=== PATIENT | female | born 1995 | race Caucasian/White ===

== ENCOUNTER → 2022-08-26 11:17 | Outpatient (BNVA) | payer OTHER, SELFPAY | PROVIDERS: Visit Provider Family Medicine | DX: Z86.711 Personal history of pulmonary embolism (principal); G43.909 Migraine, unspecified, not intractable, without status migrainosus; R06.02 Shortness of breath | CPT/HCPCS: 80053; 84439; 84443; 85025; 85049; 85384; 85610; 85730 ==

== ENCOUNTER → 2022-11-18 09:05 | Outpatient (BNVA) | payer OTHER, SELFPAY | PROVIDERS: PCP Family Medicine; Visit Provider Family Medicine | DX: G43.909 Migraine, unspecified, not intractable, without status migrainosus (principal) | CPT/HCPCS: 82728; 82785; 83550; 85025; 86003 ==

== ENCOUNTER → 2023-10-20 11:03 | Outpatient (BNVA) | payer OTHER, SELFPAY | PROVIDERS: PCP Family Medicine; Visit Provider Family Medicine | DX: R63.4 Abnormal weight loss (principal) | CPT/HCPCS: 80053; 84439; 84443; 85025 ==

== ENCOUNTER → 2023-10-21 09:26 | Outpatient (BNVA) | payer OTHER, SELFPAY | PROVIDERS: PCP Family Medicine; Visit Provider Nurse Practitioner Women's Health | DX: Z12.4 Encounter for screening for malignant neoplasm of cervix (principal); R10.2 Pelvic and perineal pain | CPT/HCPCS: 87491; 87591; 87624 ==

== ENCOUNTER → 2024-12-23 12:06 | Outpatient (BNVA) | payer OTHER, SELFPAY | PROVIDERS: PCP Family Medicine; Visit Provider Family Medicine | DX: R00.9 Unspecified abnormalities of heart beat (principal); Z86.39 Personal history of other endocrine, nutritional and metabolic disease | CPT/HCPCS: 80053; 80061; 84439; 84443; 85025; 86376 ==

== ENCOUNTER → 2025-02-02 14:43 | Outpatient (BNVA) | payer OTHER, SELFPAY | PROVIDERS: PCP Family Medicine; Referring Provider Family Medicine; Visit Provider Internal Medicine | DX: R00.2 Palpitations (principal); R00.9 Unspecified abnormalities of heart beat; Z86.711 Personal history of pulmonary embolism | CPT/HCPCS: 93005 ==

== ENCOUNTER 2025-02-25 10:00 | Outpatient (CLI) | payer OTHER, SELFPAY ==
--- NOTE | 2025-02-25 10:15 | USCV_ITS ---
Maria Dolores Ruvalcaba Age: 29 Gender: F : 1995 Exam Date: 02/25/2025 10:36 Ordering Phys: Tigre Larkin M.D ([email or web address]) Technologist: Ulices Mohr [place] [facility] [place]: chest pain BP: 126 / 74 HR: 62 Rhythm: Sinus Technical Quality: Adequate MEASUREMENTS (Male / Female) Normal Values 2D ECHO LV Diastolic Diameter PLAX 4.7 cm 4.2 - 5.9 / 3.9 - 5.3 cm IVS Diastolic Thickness 0.5 cm 0.6 - 1.0 / 0.6 - 0.9 cm IVS Systolic Thickness 0.8 cm LVPW Diastolic Thickness 0.7 cm 0.6 - 1.0 / 0.6 - 0.9 cm LVPW Systolic Thickness 1.4 cm LVOT Diameter 2.0 cm LV Ejection Fraction 2D Teich 62.5 % LV Ejection Fraction MOD 4C 70.7 % LV Ejection Fraction MOD 2C 73.3 % LV Ejection Fraction 2C AL 73.4 % LA Diameter 3.1 cm RA Systolic Volume 4C AL 18.0 ml RA Systolic Volume 4C MOD 17.2 ml LA Sys Volume AL 36.8 cm cubed LA Sys Volume Index AL 21.0 cm cubed/m squared Aorta at Sinotubular Diameter 2.1 cm IVC Diameter 1.4 cm M-MODE LA Ao Ratio MM 1.3 AV Cusp Separation MM 1.7 cm DOPPLER AV Peak Velocity 123.0 cm/s LVOT Peak Velocity 102.0 cm/s AV Area Cont Eq vti 3.0 cm squared AV Area Cont Eq pk 2.7 cm squared MV Area PHT 5.3 cm squared Mitral E to A Ratio 1.3 TV Peak Velocity 177.3 cm/s TR Peak Velocity 211.0 cm/s TR Peak Gradient 17.8 mmHg TR Mean Velocity 168.0 cm/s TR Mean Gradient 11.7 mmHg TR Velocity Time Integral 58.7 cm PV Peak Velocity 106.7 cm/s RV Ejection Time 0.3 s FINDINGS Left Ventricle Normal left ventricular size, systolic function and wall thickness, with no regional wall motion abnormalities. Left ventricular ejection fraction is estimated at 60 %. Grade II/IV diastolic dysfunction, moderately elevated filling pressures. Right Ventricle Normal right ventricular size and systolic function. Right Atrium Normal right atrial size. Left Atrium Normal left atrial size. IA Septum Normal appearance of the interatrial septum. Mitral Valve Normal mitral valve structure. No mitral valve stenosis or regurgitation. Aortic Valve Aortic valve sclerosis. No aortic valve stenosis. Tricuspid Valve [id number] tricuspid valve regurgitation. tricuspid valve regurgitation. Pulmonic Valve Mild pulmonary valve regurgitation. Pericardium No pericardial effusion. Aorta Normal diameter of the aortic root and ascending thoracic aorta. IVC Normal IVC diameter. CONCLUSIONS Normal left ventricular size, systolic function and wall thickness, with no regional wall motion abnormalities. Left ventricular ejection fraction is estimated at 60 %. Grade II/IV diastolic dysfunction, moderately elevated filling pressures. [id number] tricuspid valve regurgitation. tricuspid valve regurgitation. There is no pericardial effusion. Right atrial pressure is around 5 mm of mercury. Qamar Morris MD (Electronically Signed) Final Date: 02 March 2025 10:06 S
== END 2025-02-25 10:01 | disposition home or self-care (01) ==
LOC: RAD 10:01
PROVIDERS: PCP Family Medicine; Visit Provider Internal Medicine
DX: R07.9 Chest pain, unspecified (principal); R06.02 Shortness of breath; I51.89 Other ill-defined heart diseases; I35.8 Other nonrheumatic aortic valve disorders; I36.1 Nonrheumatic tricuspid (valve) insufficiency; I37.1 Nonrheumatic pulmonary valve insufficiency
CPT/HCPCS: 93306

== ENCOUNTER 2025-03-21 08:02 | Outpatient (CLI) | payer OTHER, SELFPAY ==
--- NOTE | 2025-03-21 | ECG_ITS ---
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 Interpretive Statements EXERCISE STRESS TEST EXERCISE DATA: The patient was exercised by Aakash protocol. Baseline heart rate was 74 beats per minute. Baseline blood pressure was 120/81 millimeters of mercury. Maximal predicted heart rate was 190 beats per minute. Maximum heart rate achieved was 186 which was 97% of the maximum predicted heart rate. Maximum blood pressure was 155/46 millimeters of mercury. Total exercise time was 8 minutes and 40 seconds. Maximum METs achieved was 10.2. The reason for ending the test was completion of protocol. The patient complained of shortness of breath and chest pain during the stress test, which then resolved at the end of the test. ELECTROCARDIOGRAM: BASELINE: Showed sinus rhythm, normal axis, no significant ST-T changes at the baseline noted. [] EXERCISE: At the peak exercise level, [] No significant ST-T changes suggestive of ischemia noted. [] RECOVERY: During the recovery period, heart rate dropped appropriately. No significant ST-T changes in the recovery suggestive of ischemia noted. [] CONCLUSION: 1. Exercise capacity is good. 2. Heart rate response was appropriate 3. Blood pressure response was appropriate 4. Symptoms not suggestive of ischemia. 5. Electrocardiogram portion of the stress test was not suggestive of ischemia. 6. Nuclear scan will be documented separately. Electronically Signed On 04-10-2025 15:41:38 [employer] by Tigre Larkin M.D. [email or web address]
[2025-03-21 08:28] VITALS: BMI 22.8
--- NOTE | 2025-03-21 08:29 | NMCV_ITS ---
NM yoselin perf SPECT r/s* [id number] RuvalcabaMaria Dolores Age: 29 Gender: F : 1995 Exam Date: 03/21/2025 09:14 Ordering Phys: Tigre Larkin M.D ([email or web address]) Technologist: TRANG Alamo Exam Location: [facility] Indications: cp STRESS TEST Please see separate stress test report in [facility] for full findings IMAGE PROTOCOL Rest/Stress 1 Exercise Day Radiopharmaceutical Dose (mCi) Administration Site Administered by Rest: Tc-99m 10.4 IV TRANG Alamo Sestamibi Stress:Tc-99m 32.9 IV Vianney Perez LOGISTICS SERVICE REPRESENTATIVE Sestamibi Rest: 21-Mar-2025 60 Discovery 630 Stress: 21-Mar-2025 30 Discovery 630 Radiopharmaceutical was injected at 96 % maximum heart rate. Images obtained in supine and prone position. SPECT RESULTS Technical Quality: Good Raw Data Analysis: Normal Image Corrections: No attenuation or motion correction applied Summed Stress Score: 0 Summed Rest Score: 0 Summed Difference Score: 0 PERFUSION FINDINGS SPECT images demonstrate homogeneous tracer distribution throughout the myocardium. FUNCTIONAL RESULTS (calculated via Gated SPECT) Stress Image LV EF (%): 79 Stress EDV (mL):73 TID: 0.65 Stress ESV (mL):15 FUNCTIONAL FINDINGS: There is normal left ventricular systolic function. IMPRESSIONS 1. Normal myocardial perfusion imaging with no evidence of ischemia 2. LV systolic function is normal Tigre Larkin MD (Electronically Signed) Final Date: 21 March 2025 11:58 S
[2025-03-21 10:28] VITALS: BP 114/78; PULSE 102
== END 2025-03-21 08:03 | disposition home or self-care (01) ==
PROVIDERS: PCP Family Medicine; Visit Provider Internal Medicine
DX: R07.9 Chest pain, unspecified (principal)
CPT/HCPCS: 36415; 78452; 93017; A9500